=== PATIENT | male | born 1940 | race Caucasian/White ===

== ENCOUNTER 2018-02-04 07:39 | Inpatient (IN) | payer MEDICARE ==
[~2018-02-04] VITALS: Ht 167.6 cm; Wt 109.0 kg
[2018-02-04] MEDS ORDERED: ASPI-515 PO (07:52)
[2018-02-04] MEDS ORDERED: CHOL200074 PO (07:52)
[2018-02-04] MEDS ORDERED: SIMV40TA3 PO (07:52)
[2018-02-04] MEDS ORDERED: METO25TA35 PO (07:52)
[2018-02-04] MEDS ORDERED: SODIUM CHLORIDE FLUSH 10ML SYR IVF ONE (08:00)
[2018-02-04 08:49] LABS: BASOPHILS # (AUTO) 0.01 x10^3/uL (0-0.1); BASOPHILS % (AUTO) 0 % (0-1); EOSINOPHILS # (AUTO) 0.05 x10^3/uL (0-0.4); EOSINOPHILS % (AUTO) 0 % (1-7); LYMPHOCYTES # (AUTO) 1.33 x10^3/uL (1-3.4); LYMPHOCYTES % (AUTO) 10 % (22-44); MD NO; MEAN CORPUSCULAR HEMOGLOBIN 34.2 pg (27.5-34.5); MEAN CORPUSCULAR HGB CONC 33.7 g/dL (33.2-36.2); MEAN CORPUSCULAR VOLUME 101.4 fL (81-97); MEAN PLATELET VOLUME 7.1 fL (7.4-10.4); MONOCYTES # (AUTO) 0.91 x10^3/uL (0.2-0.8); MONOCYTES % (AUTO) 7 % (2-9); NEUTROPHILS # (AUTO) 11.56 x10^3/uL (1.8-6.8); NEUTROPHILS % (AUTO) 83 % (42-75); PLATELET COUNT 242 x10^3/uL (130-400); RED BLOOD COUNT 4.99 x10^6/uL (4.38-5.82)
[2018-02-04 08:56] LABS: INTERNATIONAL NORMALIZED RATIO 1.07 (0.93-1.1); PROTHROMBIN TIME 11.1 Seconds (9.6-11.5)
[2018-02-04 09:01] LABS: ALANINE AMINOTRANSFERASE 18 U/L (12-78); ALBUMIN 3.3 g/dL (3.4-5.0); ANION GAP 10 mmol/L (5-15); CALCIUM 8.2 mg/dL (8.5-10.1); CHLORIDE 107 mmol/L (98-107); CREATININE 3.14 mg/dL (0.7-1.3)
[2018-02-04 09:06] LABS: ALKALINE PHOSPHATASE 68 U/L (45-117); BILIRUBIN,TOTAL 0.7 mg/dL (0.2-1.0); TOTAL PROTEIN 7.3 g/dL (6.4-8.2); TROPONIN I < 0.015 ng/mL (0.000-0.045)
[2018-02-04 09:24] LABS: CULTURE INDICATED? YES; MICROSCOPIC INDICATED
[2018-02-04] MEDS ORDERED: SODIUM CHLORIDE 0.9% 1,000ML IVBOLUS ONE (10:00)
[2018-02-04 11:26] VITALS: BP 148/77
[2018-02-04] MEDS ORDERED: HYDROcodone/APAP 5/325 TABLET PO PRN (11:30)
[2018-02-04] MEDS ORDERED: METOCLOPRAMIDE 5 MG/ML, 2ML IVPush PRN (11:30)
[2018-02-04] MEDS ORDERED: BISACODYL 10 MG SUPP PR PRN (11:30)
[2018-02-04] MEDS ORDERED: ACETAMINOPHEN 325 MG TABLET PO PRN ×2 (11:30→23:00)
[2018-02-04] MEDS ORDERED: POLYETHYLENE GLYCOL 17 GM PACKET PO PRN (11:30)
[2018-02-04] MEDS ORDERED: ONDANSETRON ODT 4 MG PO PRN (11:30)
[2018-02-04] MEDS ORDERED: PHARMACY MAY ADJ FOR RENAL FX MC PRN (11:30)
[2018-02-04] MEDS ORDERED: DOCUSATE 100 MG CAPSULE PO PRN (11:30)
[2018-02-04] MEDS ORDERED: LABETALOL 5MG/ML, 20ML IVPush PRN (11:30)
[2018-02-04] MEDS ORDERED: hydrALAzine 20 MG/ML, 1ML IVPush PRN (11:30)
[2018-02-04] MEDS ORDERED: morphine SULFATE 10 MG/ML, 1ML IVPush PRN (11:30)
[2018-02-04] MEDS ORDERED: ONDANSETRON 2MG/ML, 2ML IVPush PRN (11:30)
[2018-02-04] MEDS: HEPARIN 5,000 UNITS/ML, 1ML SQ SCH ×2 (12:38→20:30)
[2018-02-04] MEDS: SODIUM CHLORIDE 0.9% 1,000 ML IV SCH ×2 (12:38→21:00)
[2018-02-04 12:52] VITALS: BP 137/77
[2018-02-04] MEDS: METOCLOPRAMIDE 5 MG/ML, 2ML IVPush PRN (17:45)
[2018-02-04 18:47] VITALS: BP 132/69
[2018-02-04] MEDS ORDERED: ROCURONIUM 10MG/ML,5ML ONE (21:36)
[2018-02-04] MEDS ORDERED: PROPOFOL 10 MG/ML, 20ML ONE (21:36)
[2018-02-04] MEDS ORDERED: FENTANYL PF 250 MCG/5ML ONE (21:53)
[2018-02-04] MEDS ORDERED: CEFAZOLIN 1,000 MG ONE ×2 (22:11)
[2018-02-04] MEDS ORDERED: GLYCOPYRROLATE 0.4 MG/2 ML, 2ML ONE (22:11)
[2018-02-04] MEDS ORDERED: NEOSTIGMINE 1 MG/ML, 10ML ONE (22:11)
[2018-02-04] MEDS ORDERED: ONDANSETRON 2MG/ML, 2ML ONE (22:11)
[2018-02-04] MEDS ORDERED: OMNIPAQUE 350 MG/ML, 50 ML BOTTLE INJ ONE (22:19)
[2018-02-04] MEDS ORDERED: hydrALAzine 20 MG/ML, 1ML ONE (22:47)
[2018-02-04] MEDS ORDERED: LABETALOL 5MG/ML, 20ML ONE (22:48)
[2018-02-04] MEDS ORDERED: ACETAMINOPHEN 650 MG/20.3 ML UDC ONE (22:48)
[2018-02-04] MEDS ORDERED: OXYcodone 5 MG/5 ML ORAL.SOL UDC ONE (22:49)
[2018-02-04] MEDS: LABETALOL 5MG/ML, 20ML IV PRN ×2 (22:54→23:29)
[2018-02-04] MEDS ORDERED: ALBUTEROL SULFATE 2.5 MG/3 ML NPPB PRN (23:00)
[2018-02-04] MEDS ORDERED: MORPHINE SULFATE 4 MG/ML, 1ML IVPush PRN (23:00)
[2018-02-04] MEDS ORDERED: hydrALAzine 20 MG/ML, 1ML IV PRN (23:00)
[2018-02-04] MEDS ORDERED: EPHEDRINE 50 MG/ML, 1ML IVPush PRN (23:00)
[2018-02-04] MEDS ORDERED: OXYcodone 5 MG/5 ML ORAL.SOL UDC PO PRN (23:00)
[2018-02-04] MEDS ORDERED: OMNIPAQUE 350 MG/ML, 50 ML BOTTLE ONE (23:41)
[2018-02-04] MEDS ORDERED: FENTANYL PF 100 MCG/2ML ONE (23:49)
[2018-02-04] MEDS ORDERED: METOPROLOL 1 MG/ML, 5ML ONE (23:49)
[2018-02-04] MEDS: METOPROLOL 1 MG/ML, 5ML IV PRN (23:52)
[2018-02-04] MEDS: FENTANYL PF 100 MCG/2ML IV PRN (23:52)
[2018-02-05] VITALS (7 sets, daily range): BP systolic 87–129; BP diastolic 36–85
[2018-02-05] MEDS: METOPROLOL 1 MG/ML, 5ML IV PRN ×2 (00:05→00:26)
[2018-02-05] MEDS: FENTANYL PF 100 MCG/2ML IV PRN (00:06)
[2018-02-05] MEDS ORDERED: MORPHINE SULFATE 4 MG/ML, 1ML ONE (00:29)
[2018-02-05 02:40] LABS: BASOPHILS # (AUTO) 0.01 x10^3/uL (0-0.1); BASOPHILS % (AUTO) 0 % (0-1); EOSINOPHILS # (AUTO) 0.01 x10^3/uL (0-0.4); EOSINOPHILS % (AUTO) 0 % (1-7); LYMPHOCYTES # (AUTO) 1.07 x10^3/uL (1-3.4); LYMPHOCYTES % (AUTO) 7 % (22-44); MD NO; MEAN CORPUSCULAR VOLUME 102.8 fL (81-97); MONOCYTES % (AUTO) 8 % (2-9); NEUTROPHILS # (AUTO) 12.36 x10^3/uL (1.8-6.8); NEUTROPHILS % (AUTO) 84 % (42-75); PLATELET COUNT 222 x10^3/uL (130-400); RED BLOOD COUNT 4.52 x10^6/uL (4.38-5.82); RED CELL DISTRIBUTION WIDTH 13.8 % (9.4-14.8)
[2018-02-05 02:52] LABS: ALANINE AMINOTRANSFERASE 15 U/L (12-78); ALBUMIN 2.7 g/dL (3.4-5.0); ANION GAP 9 mmol/L (5-15); CALCIUM 7.7 mg/dL (8.5-10.1); CHLORIDE 115 mmol/L (98-107)
[2018-02-05 02:55] LABS: ALKALINE PHOSPHATASE 60 U/L (45-117); BILIRUBIN,TOTAL 0.5 mg/dL (0.2-1.0); CREATININE 2.83 mg/dL (0.7-1.3); TOTAL PROTEIN 6.3 g/dL (6.4-8.2)
[2018-02-05] MEDS: HEPARIN 5,000 UNITS/ML, 1ML SQ SCH ×3 (04:30→21:55)
[2018-02-05] MEDS ORDERED: MAGNESIUM SULFATE PMX 4GM/100M 100 ML IV ONE (07:30)
[2018-02-05] MEDS ORDERED: POTASSIUM CHLORIDE 20 MEQ in SODIUM CHLORIDE 0.9% 250 ML IV ONE (07:30)
[2018-02-05] MEDS ORDERED: POTASSIUM ACETATE 20 MEQ in SODIUM CHLORIDE 0.9% 250 ML IV ONE (07:30)
[2018-02-05] MEDS: SODIUM CHLORIDE 0.9% 1,000 ML IV SCH ×2 (11:26→21:56)
[2018-02-05] MEDS: CEFTRIAXONE PMX 2GM/50ML 50 ML IV SCH (12:35)
[2018-02-05] MEDS ORDERED: SODIUM CHLORIDE 0.9%, 500ML IVBOLUS ONE (13:00)
[2018-02-05] MEDS: SODIUM BICARBONATE 650 MG TABLET PO SCH (21:55)
[2018-02-05] MEDS ORDERED: DILTIAZEM 5 MG/ML, 5ML IVPush PRN (23:30)
[2018-02-06 01:17] VITALS: BP 117/71
[2018-02-06 04:19] VITALS: BP 100/63
[2018-02-06] MEDS: SODIUM CHLORIDE 0.9% 1,000 ML IV SCH ×3 (05:05→20:59)
[2018-02-06 05:24] LABS: BASOPHILS # (AUTO) 0.04 x10^3/uL (0-0.1); BASOPHILS % (AUTO) 0 % (0-1); EOSINOPHILS # (AUTO) 0.14 x10^3/uL (0-0.4); EOSINOPHILS % (AUTO) 1 % (1-7); LYMPHOCYTES # (AUTO) 1.62 x10^3/uL (1-3.4); LYMPHOCYTES % (AUTO) 15 % (22-44); MD NO; MEAN CORPUSCULAR HEMOGLOBIN 34.4 pg (27.5-34.5); MEAN CORPUSCULAR HGB CONC 33.1 g/dL (33.2-36.2); MEAN CORPUSCULAR VOLUME 103.9 fL (81-97); MEAN PLATELET VOLUME 7.5 fL (7.4-10.4); MONOCYTES # (AUTO) 0.86 x10^3/uL (0.2-0.8); MONOCYTES % (AUTO) 8 % (2-9); NEUTROPHILS # (AUTO) 8.18 x10^3/uL (1.8-6.8); NEUTROPHILS % (AUTO) 76 % (42-75); PLATELET COUNT 208 x10^3/uL (130-400); RED BLOOD COUNT 4.16 x10^6/uL (4.38-5.82); RED CELL DISTRIBUTION WIDTH 14.2 % (9.4-14.8)
[2018-02-06 05:28] LABS: ALBUMIN 2.2 g/dL (3.4-5.0); ANION GAP 11 mmol/L (5-15); CALCIUM 7.7 mg/dL (8.5-10.1); CHLORIDE 116 mmol/L (98-107)
[2018-02-06 05:30] LABS: CREATININE 1.81 mg/dL (0.7-1.3)
[2018-02-06] MEDS: HEPARIN 5,000 UNITS/ML, 1ML SQ SCH ×3 (06:15→20:59)
[2018-02-06 06:38] VITALS: BP 121/77
[2018-02-06] MEDS ORDERED: POTASSIUM CHLORIDE 20 MEQ TAB.ER.PRT PO ONE (08:30)
[2018-02-06] MEDS: CEFTRIAXONE PMX 2GM/50ML 50 ML IV SCH (10:19)
[2018-02-06] MEDS: SODIUM BICARBONATE 650 MG TABLET PO SCH ×3 (10:19→20:59)
[2018-02-06 15:54] VITALS: BP 138/74
[2018-02-06 19:21] VITALS: BP 145/81
[2018-02-07 01:15] VITALS: BP 148/89
[2018-02-07] MEDS: METOCLOPRAMIDE 5 MG/ML, 2ML IVPush PRN (03:20)
[2018-02-07 04:38] LABS: BASOPHILS # (AUTO) 0.02 x10^3/uL (0-0.1); BASOPHILS % (AUTO) 0 % (0-1); EOSINOPHILS # (AUTO) 0.37 x10^3/uL (0-0.4); EOSINOPHILS % (AUTO) 4 % (1-7); LYMPHOCYTES # (AUTO) 0.89 x10^3/uL (1-3.4); LYMPHOCYTES % (AUTO) 11 % (22-44); MD NO; MEAN CORPUSCULAR HEMOGLOBIN 34.7 pg (27.5-34.5); MEAN CORPUSCULAR HGB CONC 33.7 g/dL (33.2-36.2); MEAN PLATELET VOLUME 7.3 fL (7.4-10.4); MONOCYTES # (AUTO) 0.67 x10^3/uL (0.2-0.8); MONOCYTES % (AUTO) 8 % (2-9); NEUTROPHILS % (AUTO) 77 % (42-75); PLATELET COUNT 205 x10^3/uL (130-400); RED BLOOD COUNT 3.94 x10^6/uL (4.38-5.82); RED CELL DISTRIBUTION WIDTH 13.8 % (9.4-14.8)
[2018-02-07 04:46] LABS: ALBUMIN 2.3 g/dL (3.4-5.0); ANION GAP 9 mmol/L (5-15); CALCIUM 7.5 mg/dL (8.5-10.1); CHLORIDE 116 mmol/L (98-107); CREATININE 1.18 mg/dL (0.7-1.3)
[2018-02-07] MEDS: SODIUM CHLORIDE 0.9% 1,000 ML IV SCH ×3 (05:10→22:03)
[2018-02-07] MEDS: HEPARIN 5,000 UNITS/ML, 1ML SQ SCH (06:04)
[2018-02-07 07:20] VITALS: BP 142/73
[2018-02-07] MEDS: SODIUM BICARBONATE 650 MG TABLET PO SCH ×3 (08:03→22:03)
[2018-02-07] MEDS: CEFTRIAXONE PMX 2GM/50ML 50 ML IV SCH (08:04)
[2018-02-07] MEDS ORDERED: ASPIRIN 81 MG TABLET EC PO SCH (09:30)
[2018-02-07] MEDS: APIXABAN 5 MG TABLET PO SCH ×2 (10:09→22:03)
[2018-02-07] MEDS: CHOLECALCIFEROL 1,000 UNIT TABLET PO SCH (10:09)
[2018-02-07] MEDS: METOPROLOL TARTRATE 25 MG TABLET PO SCH ×2 (10:09→17:10)
[2018-02-07 13:53] VITALS: BP 144/79
[2018-02-07 19:48] VITALS: BP 148/86
[2018-02-07] MEDS: SIMVASTATIN 40 MG TABLET PO SCH (22:03)
[2018-02-08 00:43] VITALS: BP 139/77
[2018-02-08 01:42] LABS: CULTURE INDICATED? YES; MICROSCOPIC INDICATED
[2018-02-08 04:05] VITALS: BP 129/76
[2018-02-08 04:33] LABS: BASOPHILS # (AUTO) 0.02 x10^3/uL (0-0.1); BASOPHILS % (AUTO) 0 % (0-1); EOSINOPHILS # (AUTO) 0.51 x10^3/uL (0-0.4); EOSINOPHILS % (AUTO) 6 % (1-7); LYMPHOCYTES # (AUTO) 1.41 x10^3/uL (1-3.4); LYMPHOCYTES % (AUTO) 16 % (22-44); MD NO; MEAN CORPUSCULAR HEMOGLOBIN 35.1 pg (27.5-34.5); MEAN CORPUSCULAR HGB CONC 34.1 g/dL (33.2-36.2); MEAN CORPUSCULAR VOLUME 102.8 fL (81-97); MEAN PLATELET VOLUME 7.2 fL (7.4-10.4); MONOCYTES % (AUTO) 9 % (2-9); NEUTROPHILS # (AUTO) 6.24 x10^3/uL (1.8-6.8); NEUTROPHILS % (AUTO) 70 % (42-75); PLATELET COUNT 235 x10^3/uL (130-400); RED BLOOD COUNT 4.02 x10^6/uL (4.38-5.82); RED CELL DISTRIBUTION WIDTH 13.6 % (9.4-14.8)
[2018-02-08 04:42] LABS: ALBUMIN 2.2 g/dL (3.4-5.0); ANION GAP 10 mmol/L (5-15); CALCIUM 7.2 mg/dL (8.5-10.1); CHLORIDE 116 mmol/L (98-107); CREATININE 1.01 mg/dL (0.7-1.3)
[2018-02-08 05:15] LABS: FOLATE LEVEL 5.6 ng/mL (3.1-17.5)
[2018-02-08] MEDS ORDERED: MAGNESIUM SULFATE PMX 2GM/50ML 50 ML IV ONE (05:30)
[2018-02-08] MEDS: SODIUM CHLORIDE 0.9% 1,000 ML IV SCH ×3 (05:44→21:28)
[2018-02-08] MEDS: METOPROLOL TARTRATE 25 MG TABLET PO SCH ×2 (05:45→18:36)
[2018-02-08 06:00] LABS: CLOSTRIDIUM DIFFICILE ANTIGEN NEGATIVE; CLOSTRIDIUM DIFFICILE TOXIN NEGATIVE (Negative)
[2018-02-08 06:58] VITALS: BP 142/74
[2018-02-08] MEDS: CHOLECALCIFEROL 1,000 UNIT TABLET PO SCH (08:57)
[2018-02-08] MEDS: SODIUM BICARBONATE 650 MG TABLET PO SCH ×3 (08:57→21:27)
[2018-02-08] MEDS: CEFTRIAXONE PMX 2GM/50ML 50 ML IV SCH (08:57)
[2018-02-08] MEDS: APIXABAN 5 MG TABLET PO SCH ×2 (08:57→21:27)
[2018-02-08] MEDS ORDERED: POTASSIUM CHLORIDE 20 MEQ TAB.ER.PRT PO ONE (13:30)
[2018-02-08 15:36] VITALS: BP 146/81
[2018-02-08 18:34] VITALS: BP 143/94
[2018-02-08] MEDS: SIMVASTATIN 40 MG TABLET PO SCH (21:27)
[2018-02-09 01:24] VITALS: BP 158/89
[2018-02-09 05:13] LABS: BASOPHILS # (AUTO) 0.03 x10^3/uL (0-0.1); BASOPHILS % (AUTO) 0 % (0-1); EOSINOPHILS # (AUTO) 0.47 x10^3/uL (0-0.4); EOSINOPHILS % (AUTO) 6 % (1-7); LYMPHOCYTES # (AUTO) 1.21 x10^3/uL (1-3.4); LYMPHOCYTES % (AUTO) 15 % (22-44); MD NO; MEAN CORPUSCULAR HEMOGLOBIN 34.8 pg (27.5-34.5); MEAN CORPUSCULAR VOLUME 102.2 fL (81-97); MEAN PLATELET VOLUME 7.6 fL (7.4-10.4); MONOCYTES % (AUTO) 10 % (2-9); NEUTROPHILS # (AUTO) 5.78 x10^3/uL (1.8-6.8); NEUTROPHILS % (AUTO) 70 % (42-75); PLATELET COUNT 245 x10^3/uL (130-400); RED BLOOD COUNT 3.92 x10^6/uL (4.38-5.82); RED CELL DISTRIBUTION WIDTH 13.5 % (9.4-14.8)
[2018-02-09 05:21] LABS: CHLORIDE 115 mmol/L (98-107)
[2018-02-09 05:25] LABS: ALBUMIN 2.1 g/dL (3.4-5.0); ANION GAP 11 mmol/L (5-15); CALCIUM 7.7 mg/dL (8.5-10.1); CREATININE 0.97 mg/dL (0.7-1.3)
[2018-02-09] MEDS: SODIUM CHLORIDE 0.9% 1,000 ML IV SCH (05:50)
[2018-02-09] MEDS ORDERED: MAGNESIUM SULFATE PMX 4GM/100M 100 ML IV ONE (06:00)
[2018-02-09 06:02] VITALS: BP 146/90
[2018-02-09] MEDS: METOPROLOL TARTRATE 25 MG TABLET PO SCH (06:04)
[2018-02-09 07:30] VITALS: BP 158/79
[2018-02-09] MEDS: APIXABAN 5 MG TABLET PO SCH (08:22)
[2018-02-09] MEDS: CHOLECALCIFEROL 1,000 UNIT TABLET PO SCH (08:22)
[2018-02-09] MEDS: SODIUM BICARBONATE 650 MG TABLET PO SCH ×2 (08:22→16:27)
[2018-02-09] MEDS ORDERED: POTASSIUM CHLORIDE 20 MEQ TAB.ER.PRT PO ONE (09:00)
[2018-02-09] MEDS ORDERED: CYANOCOBALAMIN 1,000 MCG TABLET PO SCH (09:00)
[2018-02-09] MEDS: CEFTRIAXONE PMX 2GM/50ML 50 ML IV SCH (10:56)
[2018-02-09 14:47] VITALS: BP 157/89
[2018-02-09] MEDS ORDERED: CYAN10005 PO (16:24)
[2018-02-09] MEDS ORDERED: APIX5TAB PO (16:24)
[2018-02-09] MEDS ORDERED: SODI650T PO (16:24)
== END 2018-02-09 18:15 | disposition home health service (06) | DRG 871 ==
LOC: ED 09:27 → EDIP 09:48 → 4WST 10:37
PROVIDERS: ADMIT Internal Medicine Pulmonary Disease; ATTEND Internal Medicine Pulmonary Disease
PROC: BT14YZZ Fluoroscopy of Kidneys, Ureters and Bladder using Other Contrast (ICD-10-PCS; 2018-02-04)
PROC: 0T788DZ Dilation of Bilateral Ureters with Intraluminal Device, Via Natural or Artificial Opening Endoscopic (ICD-10-PCS; principal; 2018-02-04 21:30)
PROC: 0T9B70Z Drainage of Bladder with Drainage Device, Via Natural or Artificial Opening (ICD-10-PCS; 2018-02-08)
DX: A41.9 Sepsis, unspecified organism (principal); N17.0 Acute kidney failure with tubular necrosis; N13.2 Hydronephrosis with renal and ureteral calculous obstruction; I47.2 Ventricular tachycardia; D68.69 Other thrombophilia; E44.1 Mild protein-calorie malnutrition; I69.354 Hemiplegia and hemiparesis following cerebral infarction affecting left non-dominant side; K56.7 Ileus, unspecified; N17.9 Acute kidney failure, unspecified; I48.0 Paroxysmal atrial fibrillation; E83.42 Hypomagnesemia; D75.89 Other specified diseases of blood and blood-forming organs; E78.5 Hyperlipidemia, unspecified; E87.6 Hypokalemia; I10 Essential (primary) hypertension; N21.0 Calculus in bladder; N39.3 Stress incontinence (female) (male); R13.10 Dysphagia, unspecified; Z66 Do not resuscitate; Z80.3 Family history of malignant neoplasm of breast; Z83.3 Family history of diabetes mellitus; Z68.38 Body mass index [BMI] 38.0-38.9, adult; Z92.3 Personal history of irradiation; Z87.891 Personal history of nicotine dependence; Z85.828 Personal history of other malignant neoplasm of skin; Z85.46 Personal history of malignant neoplasm of prostate
CPT/HCPCS: 36415; 70450; 74022; 74176; 74420; 80048; 80053; 81001; 82040; 82607; 82746; 83605; 83690; 83735; 83880; 84100; 84443; 84484; 85025; 85610; 87040; 87086; 87324; 93005; 93306; 99285; J0690; J0696; J1644; J2405; J2704; J2710; J3010; Q9967; C1758; C1769; C2617; J0360; J2765; J3475; J7030; J7040; J7050

== ENCOUNTER → 2019-07-20 | Outpatient (CLI) | payer MEDICARE ==
[~2019-07-20] MED LIST: APIX5TAB PO; ASPI-515 PO; CHOL200074 PO; CYAN-27 PO; METO25TA35 PO; SIMV40TA3 PO; SODI650T PO
== END | disposition home or self-care (01) ==
LOC: CVU 10:47
PROVIDERS: ATTEND Nurse Practitioner Family
DX: I65.23 Occlusion and stenosis of bilateral carotid arteries (principal); I63.9 Cerebral infarction, unspecified
CPT/HCPCS: 93880

== ENCOUNTER 2020-05-04 18:53 | Emergency (ER) | payer MEDICARE ==
[~2020-05-04] VITALS: Ht 167.6 cm; Wt 105.3 kg
[~2020-05-04 18:53] MED LIST changes: +SIMV40TA20 PO; -SIMV40TA3 PO
[2020-05-04] MEDS ORDERED: SODIUM CHLORIDE 0.9% 1,000 ML IV ONE (19:23)
--- NOTE | 2020-05-04 19:24 | NUR ---
THIS IS A 79 YO MALE BIB [facility] WITH C/O N/V/D X5 DAYS WITH DECREASED APPETITE, DENIES ABD PAIN. PER EMS, PATIENT HAD SIMILAR EPISODE LAST YEAR, PATIENT STATES "I HAD SURGERY FOR IT" BUT UNABLE TO RECALL WHAT SURGERY. FROM DESCRIPTION BY PATIENT, HAS HAD BILIOUS VOMITING. [facility] PLACED PIV AND ADMINISTEREED APPROX 800ML NS EN ROUTE, PATIENT STATE IT HELPED THE NAUSEA. 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 ALL MONITORING IN PLACE, VSS, NADN AT THIS TIME, DENIES NAUSEA AT THIS TIME. ERP IN ROOM FOR EVAL. CALL LIGHT IN REACH
[2020-05-04] MEDS ORDERED: SODIUM CHLORIDE FLUSH 10ML SYR IVF ONE (19:30)
--- NOTE | 2020-05-04 19:33 | NUR ---
IVF STARTED PER [facility]
[2020-05-04 19:46] LABS: BASOPHILS # (AUTO) 0.02 x10^3/uL (0-0.1); BASOPHILS % (AUTO) 0 % (0-1); EOSINOPHILS # (AUTO) 0.13 x10^3/uL (0-0.4); EOSINOPHILS % (AUTO) 1 % (1-7); LYMPHOCYTES # (AUTO) 2.35 x10^3/uL (1-3.4); LYMPHOCYTES % (AUTO) 23 % (22-44); MD NO; MEAN CORPUSCULAR HEMOGLOBIN 34.6 pg (27.5-34.5); MEAN CORPUSCULAR HGB CONC 33.4 g/dL (33.2-36.2); MEAN CORPUSCULAR VOLUME 103.6 fL (81-97); MEAN PLATELET VOLUME 7.2 fL (7.4-10.4); MONOCYTES % (AUTO) 8 % (2-9); NEUTROPHILS # (AUTO) 7.09 x10^3/uL (1.8-6.8); NEUTROPHILS % (AUTO) 68 % (42-75); PLATELET COUNT 237 x10^3/uL (130-400); RED BLOOD COUNT 4.92 x10^6/uL (4.38-5.82); RED CELL DISTRIBUTION WIDTH 14.1 % (9.4-14.8)
--- NOTE | 2020-05-04 19:56 | NUR ---
TASK RN: [facility] COLLECTED AND SENT TO LAB. PT DENIES MCGUIRE/CP. DENIES NEEDS. FAMILY AT BEDSIDE
[2020-05-04 20:04] LABS: ALANINE AMINOTRANSFERASE 31 U/L (12-78); ALBUMIN 3.2 g/dL (3.4-5.0); ANION GAP 8 mmol/L (5-15); CALCIUM 8.7 mg/dL (8.5-10.1); CHLORIDE 113 mmol/L (98-107); CREATININE 1.48 mg/dL (0.7-1.3)
[2020-05-04 20:06] LABS: ALKALINE PHOSPHATASE 73 U/L (45-117); BILIRUBIN,TOTAL 0.7 mg/dL (0.2-1.0); TOTAL PROTEIN 7.1 g/dL (6.4-8.2)
[2020-05-04 20:21] LABS: MICROSCOPIC INDICATED
--- NOTE | 2020-05-04 21:42 | NUR ---
PATIENT RESTING ON GURNEY, RESPIRATIONS EVEN AND UNLABORED. VSS, NADN AT THIS TIME. FAMILY IN ROOM
--- NOTE | 2020-05-04 21:59 | NUR ---
PATIENT TO CT
[2020-05-04] MEDS ORDERED: CEFTRIAXONE PMX 1GM/50ML 50 ML ONE (22:51)
--- NOTE | 2020-05-04 22:55 | NUR ---
VERIFIED WITH MD PRIOR TO ABX ADMIN NO NEED FOR BLOOD CULTURES. IV ABX STARTED
[2020-05-04] MEDS ORDERED: CEFTRIAXONE PMX 1GM/50ML 50 ML IVPB ONE (23:00)
[2020-05-04] MEDS ORDERED: OMNIPAQUE 350 MG/ML, 100ML BOTTLE ONE (23:14)
[2020-05-05 00:08] VITALS: BP 166/71
--- NOTE | 2020-05-05 00:08 | NUR ---
Patient/Caregiver given discharge instructions and they have confirmed that they understand the instructions. Patient transferred to wheelchair and wheeled to discharge
== END 2020-05-05 00:10 | disposition home or self-care (01) ==
LOC: ED 20:43
DX: N30.00 Acute cystitis without hematuria (principal); R11.2 Nausea with vomiting, unspecified; R19.7 Diarrhea, unspecified; Z86.73 Personal history of transient ischemic attack (TIA), and cerebral infarction without residual deficits
CPT/HCPCS: 36415; 74177; 80053; 81001; 83690; 85025; 87086; 96361; 96365; 99285; J0696; J7030; Q9967